=== PATIENT | female | born 1950 ===

== ENCOUNTER 2024-11-10 07:26 | Inpatient (IN) | payer MEDICARE, OTHER, SELFPAY ==
--- NOTE | 2024-10-20 15:10 | PTCARENOTE ---
Patient utilizes iVaps machine @ [facility]. Contacted Maria Esther Mathew in Resp regarding post op management. Maria Esther offered to speak with patient regarding post op options and device management. Resp will attempt to speak with patient when she comes in
for preadmission testing on 10/21.
--- NOTE | 2024-10-21 13:21 | CM ---
Cm reviewed medical records. CM left message for patient to discuss discharge planning options.
[2024-10-21 14:00] LABS: Hemoglobin 13.4 g/dL (12.0-16.0); Mean Corp Hgb Conc. 31.2 g/dL (33.0-37.0); Mean Corpuscular Hgb 28.6 pg (27.0-31.0); Mean Corpuscular Volume 91.7 fL (81.0-99.0); Platelet Count 481 10^3/uL (130-400); Red Blood Cell Count 4.69 10^6/uL (4.20-5.40); Red Cell Dist. Width 13.3 % (11.5-14.5); White Blood Cell Count 13.2 10^3/uL (4.8-10.8)
[2024-10-21 14:08] VITALS: BMI 46.2
--- NOTE | 2024-10-21 14:22 | CM ---
CM spoke with patient via phone. Patient stated that she lives with her sister and sister's fiance. She did explain that they also work and are not available during the day for assistance. Patient further stated that she had nieces that can assist,
but they work also. CM explained that SNF would not be funded unless she was an inpatient for three midnights. Patient is unable to private pay for rehab.
Patient would be agreeable to skilled care. CM sent patient a list of private pay aides via email. Patient stated that she will review list. Patient was grateful for the information and will discuss further with her surgical team and family.
CM will remain available as needed.
[2024-10-21 14:32] LABS: Glycohemoglobin (HgbA1c) 7.4 % (4.0-5.6)
[2024-10-21 14:41] LABS: ALT (SGPT) 17 U/L (0-35); AST (SGOT) 18 U/L (14-36); Albumin 4.8 g/dl (3.5-5.0); Alkaline Phosphatase 85 U/L (38-126); Blood Urea Nitrogen 23 mg/dl (7-17); Calcium 9.8 mg/dl (8.4-10.2); Carbon Dioxide 32 mmol/L (22-30); Chloride 93 mmol/L (98-107); Estimated Creatinine Clearance 56 ml/min; Glucose 197 mg/dl (70-99); Potassium 4.2 mmol/L (3.5-5.1); Sodium 137 mmol/L (135-145); Total Bilirubin 1.2 mg/dl (0.2-1.3); Total Protein 7.9 g/dl (6.3-8.2); eGFR 47.21
--- NOTE | 2024-10-26 13:17 | VNURNOTE ---
Chart reviewed. Due to patient's home address, she would be out of [facility] service area. Per chart, she will be admitted morning of surgery and will be assigned a CM after surgery for DC planning. DC dispo TBD.
--- NOTE | 2024-11-04 08:27 | PTCARENOTE ---
Abnormal eGFR 47.21 and A1C 7.4 collected 10/21/24, reported to Samantha at Dr Sandhu's office.
[2024-11-10] VITALS (23 sets, daily range): BP systolic 106–178; BP diastolic 52–96; PULSE 107; BMI 46.2
[2024-11-10] MEDS: TYLENOL 1000 MG PO (08:11)
[2024-11-10] MEDS: NORMOSOL-R/PLASMALYTE-A 1000 IV ×2 (08:34→16:25)
[2024-11-10 08:36] LABS: Glucose - Point of Care 217 mg/dl (70-99)
[2024-11-10] MEDS: NOVOLOG vial 2 UNITS SC ×2 (08:43→11:53)
--- NOTE | 2024-11-10 09:09 | W.DS.TRANS ---
DC Summary - Skid Man
-
Discharge Instructions:
Discharge Diagnosis/Procedures R Reverse TSA 11/10/24
Diet Diabetic, Carb Controlled
Activity No strenuous activity
Driving Restrictions No driving
Instructions:
Stand-Alone Forms: Total Shoulder Replacement D/C
Changes to Home Medications: Yes
Discharge Medications:
DC Medications w/original date entered in [id number]
bupropion HCl 150 mg tablet,12 hr sustained-release (Wellbutrin SR) 150 mg PO DAILY 10/20/24
cholecalciferol (vitamin D3) 50 mcg (2,000 unit) capsule (Vitamin D3) 100 mcg PO DAILY 10/20/24
cilostazol 100 mg tablet 100 mg PO DAILY 10/20/24
dulaglutide 3 mg/0.5 mL subcutaneous pen injector (Trulicity) 3 mg SC JENSEN 10/20/24
fluticasone 100 mcg-salmeterol 50 mcg/dose blistr powdr for inhalation 1 inh inhalation BIDPRN PRN SOB, Wheezes 10/20/24
furosemide 40 mg tablet (Lasix) 40 mg PO DAILY 10/20/24
infliximab 100 mg intravenous solution (Remicade) 1,000 mg IV Q6W 10/20/24
insulin NPH isoph U-100 human 100 unit/mL subcutaneous suspension (Novolin N NPH U-100 Insulin isophane) 15 unit SC DAILY if BS > 100 10/20/24
magnesium 250 mg tablet 500 mg PO DAILY 10/20/24
imabptnzymbe-anvtmkfn-ethrbv tablet 1 tab PO DAILY 10/20/24
pantoprazole 40 mg tablet,delayed release (Protonix) 40 mg PO DAILY 10/20/24
repaglinide 1 mg tablet 3 mg PO DAILY 10/20/24
repaglinide 2 mg tablet 2 mg PO NOON 10/20/24
repaglinide 2 mg tablet 4 mg PO QPM 10/20/24
mupirocin 2 % topical ointment 1 applic intranasal BID #1 tube 10/21/24
Saccharomyces boulardii 250 mg capsule (Florastor) 250 mg PO BID #1 cap 11/10/24
acetaminophen 650 mg tablet,extended release 1,300 mg (2 x 650 mg) PO QID #0 tabs 11/10/24
aspirin 81 mg tablet,delayed release 81 mg PO BID Blood clot prevention/tx #0 tabs 11/10/24
codeine sulfate 15 mg tablet 15 mg PO Q4H PRN moderate-severe pain #30 tabs 11/10/24
docusate sodium 100 mg capsule (Colace) 100 mg PO BID stool softner #1 cap 11/10/24
doxycycline hyclate 100 mg capsule 100 mg PO BID infection prevention #10 caps 11/10/24
gabapentin 300 mg capsule 300 mg PO HS sleep/pain #10 caps 11/10/24
ondansetron 4 mg disintegrating tablet 4 mg PO Q6H PRN n/v #20 tabs 11/10/24
sennosides 8.6 mg tablet (Senokot) 8.6 mg PO BID PRN laxative-constipation #2 tabs 11/10/24
Home Medication Changes
mupirocin 2 % topical ointment 1 applic intranasal BID #1 tube 10/21/24
Saccharomyces boulardii 250 mg capsule (Florastor) 250 mg PO BID #1 cap 11/10/24
acetaminophen 650 mg tablet,extended release 1,300 mg (2 x 650 mg) PO QID #0 tabs 11/10/24
aspirin 81 mg tablet,delayed release 81 mg PO BID Blood clot prevention/tx #0 tabs 11/10/24
codeine sulfate 15 mg tablet 15 mg PO Q4H PRN moderate-severe pain #30 tabs 11/10/24
docusate sodium 100 mg capsule (Colace) 100 mg PO BID stool softner #1 cap 11/10/24
doxycycline hyclate 100 mg capsule 100 mg PO BID infection prevention #10 caps 11/10/24
gabapentin 300 mg capsule 300 mg PO HS sleep/pain #10 caps 11/10/24
ondansetron 4 mg disintegrating tablet 4 mg PO Q6H PRN n/v #20 tabs 11/10/24
sennosides 8.6 mg tablet (Senokot) 8.6 mg PO BID PRN laxative-constipation #2 tabs 11/10/24
Pending Results: No
[2024-11-10 11:18] LABS: Glucose - Point of Care 183 mg/dl (70-99)
[2024-11-10] MEDS: CODEINE 15 MG PO (11:28)
[2024-11-10] MEDS: NOVOLOG FLEXPEN-MODERATE RESISTANCE SC ×2 (12:35→16:39)
[2024-11-10] MEDS: TYLENOL PO (12:40)
[2024-11-10] MEDS: HUMULIN N KWIKPEN 22 UNITS SC (12:46)
[2024-11-10 13:14] LABS: Glucose - Point of Care 239 mg/dl (70-99)
[2024-11-10 13:14] LABS: Glucose - Point of Care 205 mg/dl (70-99)
[2024-11-10] MEDS: PRANDIN PO (14:59)
[2024-11-10 15:06] LABS: Glucose - Point of Care 305 mg/dl (70-99)
[2024-11-10] MEDS: NOVOLOG vial 6 UNITS SC (15:25)
[2024-11-10] MEDS: TYLENOL 650 MG PO ×3 (15:39→23:15)
[2024-11-10] MEDS: PROTONIX 40 MG PO (15:59)
[2024-11-10] MEDS: MAGNESIUM OXIDE 500 MG PO (15:59)
[2024-11-10] MEDS: WELLBUTRIN SR (12 hour sustained release) 150 MG PO (15:59)
[2024-11-10] MEDS: ANCEF 5 IV ×2 (16:49→23:14)
[2024-11-10 17:10] LABS: Glucose - Point of Care 284 mg/dl (70-99)
[2024-11-10 18:07] LABS: Glucose - Point of Care 260 mg/dl (70-99)
[2024-11-10] MEDS: ASPIRIN 325 MG PO (18:23)
[2024-11-10] MEDS: FLORASTOR 250 MG PO (20:00)
[2024-11-10] MEDS: ADVAIR HFA 45/21 MCG INHALER 2 PUFF INH (20:04)
[2024-11-10 20:22] LABS: Glucose - Point of Care 280 mg/dl (70-99)
[2024-11-10] MEDS: NOVOLOG FLEXPEN-MODERATE RESISTANCE 5 UNITS SC (20:23)
[2024-11-10] MEDS: PRANDIN 4 MG PO (20:29)
[2024-11-10] MEDS: BACTROBAN 2% OINTMENT 1 APPLIC NASAL (20:34)
[2024-11-10] MEDS: NEURONTIN 300 MG PO (22:41)
[2024-11-11] MEDS: TYLENOL 650 MG PO ×4 (03:51→16:55)
[2024-11-11 07:20] VITALS: BP 151/64
[2024-11-11 07:23] LABS: Glucose - Point of Care 226 mg/dl (70-99)
[2024-11-11] MEDS: ADVAIR HFA 45/21 MCG INHALER 2 PUFF INH (07:29)
[2024-11-11] MEDS: FLORASTOR 250 MG PO (08:49)
[2024-11-11] MEDS: MAGNESIUM OXIDE 500 MG PO (08:49)
[2024-11-11] MEDS: PRANDIN 3 MG PO ×2 (08:49→11:33)
[2024-11-11] MEDS: NOVOLOG FLEXPEN-MODERATE RESISTANCE 3 UNITS SC ×2 (08:49→17:55)
[2024-11-11] MEDS: WELLBUTRIN SR (12 hour sustained release) 150 MG PO (08:50)
[2024-11-11] MEDS: BACTROBAN 2% OINTMENT 1 APPLIC NASAL (08:50)
[2024-11-11] MEDS: ASPIRIN 325 MG PO (08:50)
[2024-11-11] MEDS: LASIX 20 MG PO (08:50)
[2024-11-11] MEDS: PROTONIX 40 MG PO (08:50)
[2024-11-11] MEDS: HUMULIN N KWIKPEN 22 UNITS SC (08:51)
--- NOTE | 2024-11-11 09:08 | W.PN.ORTHO ---
Today's Communication / Plan
-
d/c
Assessment
.
Distal Motor Intact: Yes
Dressing:
Clean, dry and intact.
Assessment:
NIDDM-hyperglycemic despite addition of insulins-strict carb control at home-Doxy abx ppx
PAD-resume antiplatelet POD 2
Hypoxemia chronic -secondary to obesity, deconditioning, anesthesia/opioid/JU, COPD/asthma--no SOB-improving with inh-IS-sats stable
Plan
.
Surgery / Date: R Reverse TSA 11/10/24
DVT Prophylaxis: Aspirin
Activity:
Out of bed.
PT/OT
Discharge Plan: Home
Subjective
.
.:
Patient resting comfortably.
Vital Signs and Labs
.
Vital Signs and Labs:
Lab Results
10/21/24 12:35
10/21/24 12:35
Temp Pulse Resp BP Pulse Ox
98.1 F 86 16 151/64 94
11/11/24 07:20 11/11/24 07:34 11/11/24 07:34 11/11/24 07:20 11/11/24 07:34
Non-invasive Hgb result: 16.1
Physical Exam
-
HEENT: No pallor, cyanosis, or jaundice. Throat clear.
NECK: Supple. No JVD.
RESPIRATORY: Lungs clear to auscultation.
CVS: S1, S2 normal. RRR.� No murmur, rub or gallop.
ABDOMEN: Soft, non-tender. No distension. BS+/normal.
EXTREMITIES: strength equal, no calf pain with palpation
MULTIPLE SCLEROSIS NURSE: AOx3. No focal deficits. cat wagon operator grossly intact
[2024-11-11] MEDS: LASIX 20 MG IV (10:00)
[2024-11-11 10:37] VITALS: BP 146/82; PULSE 81; O2SAT 95
[2024-11-11 11:24] VITALS: BP 128/81; PULSE 80
[2024-11-11 11:26] LABS: Glucose - Point of Care 288 mg/dl (70-99)
[2024-11-11] MEDS: CODEINE 15 MG PO (11:32)
--- NOTE | 2024-11-11 11:54 | CM ---
Addendum entered by Dionne Toña 11/11/24 15:51:
Transport at 1900 - pt aware - reports will contact family
Addendum entered by Dionne Toña 11/11/24 15:50:
Accepted by [facility]
Addendum entered by Dionne Ding 11/11/24 13:04:
LM with Liapolo Rai - requesting referral review0
Pt reports she lives in an apt with her sister and sister's fiance - 16 steps to enter home
Independent at baseline, retired, driving. Used single point cane outside of home
DME - single point cane, commode
SNF - [facility] past
HH - [facility] in past
PCP - [facility]
Pharm - [facility]
Reviewed IMM
PT/OT recs - HH. Requesting referral to [facility] [place]
Reporting will need transport home - unable to maneuver steps at this time. Aware may not qualify for ambulance - requesting to be billed for services if not qualified
Plan - Anticipate home with [facility]
f - [phone]
Original Note:
Initial assessment completed
Referral sent to [facility] [place] for HH needs in [facility]
[2024-11-11] MEDS: NOVOLOG FLEXPEN-MODERATE RESISTANCE 5 UNITS SC (12:49)
[2024-11-11 15:30] VITALS: BP 169/94
[2024-11-11] MEDS: PRANDIN 4 MG PO (16:55)
[2024-11-11 17:17] LABS: Glucose - Point of Care 219 mg/dl (70-99)
== END 2024-11-11 18:25 | disposition home health service (06) | DRG 483 ==
LOC: 2 SOUTH 07:26
PROVIDERS: ADMITTING PHYSICIAN Orthopaedic Surgery Hand Surgery; FAMILY PHYSICIAN Internal Medicine
PROC: 0RRJ00Z Replacement of Right Shoulder Joint with Reverse Ball and Socket Synthetic Substitute, Open Approach (ICD-10-PCS; 2024-11-10)
PROC: 5A09357 Assistance with Respiratory Ventilation, Less than 24 Consecutive Hours, Continuous Positive Airway Pressure (ICD-10-PCS; 2024-11-10)
DX: M19.011 Primary osteoarthritis, right shoulder (principal); K50.90 Crohn's disease, unspecified, without complications; A04.72 Enterocolitis due to Clostridium difficile, not specified as recurrent; Z68.42 Body mass index [BMI] 45.0-49.9, adult; M75.101 Unspecified rotator cuff tear or rupture of right shoulder, not specified as traumatic; N18.30 Chronic kidney disease, stage 3 unspecified; E11.22 Type 2 diabetes mellitus with diabetic chronic kidney disease; E11.51 Type 2 diabetes mellitus with diabetic peripheral angiopathy without gangrene; G47.33 Obstructive sleep apnea (adult) (pediatric); K21.9 Gastro-esophageal reflux disease without esophagitis; F32.A Depression, unspecified; D69.6 Thrombocytopenia, unspecified; E66.01 Morbid (severe) obesity due to excess calories; Z87.891 Personal history of nicotine dependence; Z96.653 Presence of artificial knee joint, bilateral; Z98.41 Cataract extraction status, right eye; Z98.42 Cataract extraction status, left eye; E11.65 Type 2 diabetes mellitus with hyperglycemia; J44.89 Other specified chronic obstructive pulmonary disease; R09.02 Hypoxemia
CPT/HCPCS: 36415; 73020; 80053; 82962; 83036; 85027; 86850; 86900; 86901; 87070; 93005; 94640; 94660; 97110; 97116; 97162; 97166; 97535; C1713; C1776

== ENCOUNTER 2025-03-22 15:00 | Inpatient (IN) | payer MEDICARE, OTHER, SELFPAY ==
[2025-03-22] VITALS (32 sets, daily range): BP systolic 97–134; BP diastolic 33–91; PULSE 2–95; BMI 44.5
[2025-03-22] MEDS: NORMOSOL-R/PLASMALYTE-A 1000 IV (07:35)
[2025-03-22 07:38] LABS: Glucose - Point of Care 119 mg/dl (70-99)
[2025-03-22 07:52] LABS: Hematocrit 34.6 % (37.0-47.0); Hemoglobin 10.6 g/dL (12.0-16.0); Mean Corp Hgb Conc. 30.6 g/dL (33.0-37.0); Mean Corpuscular Volume 84.6 fL (81.0-99.0); Platelet Count 453 10^3/uL (130-400); Red Cell Dist. Width 16.3 % (11.5-14.5)
[2025-03-22] MEDS: TYLENOL 1000 MG PO (07:55)
[2025-03-22 08:10] LABS: ALT (SGPT) < 10 U/L (0-35); AST (SGOT) 14 U/L (14-36); Albumin 4.2 g/dl (3.5-5.0); Alkaline Phosphatase 81 U/L (38-126); Blood Urea Nitrogen 31 mg/dl (7-17); Calcium 9.1 mg/dl (8.4-10.2); Carbon Dioxide 35 mmol/L (22-30); Chloride 94 mmol/L (98-107); Estimated Creatinine Clearance 48 ml/min; Glucose 118 mg/dl (70-99); Potassium 4.3 mmol/L (3.5-5.1); Sodium 138 mmol/L (135-145); Total Protein 7.9 g/dl (6.3-8.2); eGFR 38.99
[2025-03-22] MEDS: MOBIC 15 MG PO (08:11)
[2025-03-22 12:40] LABS: Glucose - Point of Care 196 mg/dl (70-99)
--- NOTE | 2025-03-22 12:53 | CON.HOSP ---
Addendum entered and electronically signed by Talita Anderson MD 03/22/25 13:54:
ABG shows hypercarbia/acute respiratory acidosis secondary to anaesthesia/COPD. Patient improving on BIPAP.
Hold all sedating medications and insulin apart from ISS.
Original Note:
Family Physician
-
Family Physician: INTERVIEWE UNKNOWN - PT NOT
Chief Complaint
-
post op consult
History of Present Illness
75-year-old female past medical history of right rotator cuff arthropathy/arthritis of right shoulder status post right reverse total shoulder arthroplasty in November,, osteoarthritis, PACs, diabetes, peripheral arterial disease, childhood heart
murmur, anxiety/depression, Crohn's disease, GERD, COPD, obstructive sleep apnea on CPAP, CKD 3, C. difficile colitis 2018, obesity, remote tobacco use, restless leg syndrome
Patient was admitted in November for right reverse total shoulder arthroplasty. Today she underwent ORIF.
Hospitalist consulted for medical management. Patient was noted to be somnolent, unresponsive after anesthesia. She opens her eyes a little bit to stimulation.
Medical History
Past Medical History
Past Medical History: Reports Other (right rotator cuff arthropathy/arthritis of right shoulder status post right reverse total shoulder arthroplasty in November,, osteoarthritis, PACs, diabetes, peripheral arterial disease, childhood heart murmur,
anxiety/depression, Crohn's disease, GERD, COPD, obstructive sleep apnea on CPAP, CKD 3, C.)
Past Surgical History: Reports Other ( Cholecystectomy, bilateral knee replacement, cataracts, right shoulder R TSA-AW R,)
Social History
Unable to obtain full social history at this time due to: Patient Non-verbal
Allergies / Home Medications
Allergies reflects when Allergies were last updated in Book[facility]Table.
Home Medications with original date entered in Book&Table
Allergy/Medication List:
Allergies
Allergy/AdvReac Type Severity Reaction Status Date / Time
celecoxib (From Celebrex) Allergy Palpitation Verified 03/22/25 07:42
s
infliximab-dyyb (From Allergy Uncontrollable Verified 03/22/25 07:42
Inflectra) Diarrhea
rofecoxib (From Vioxx) Allergy Palpitation Verified 03/22/25 07:42
NSAIDS (Non-Steroidal AdvReac Chronic Verified 03/22/25 07:42
Anti-Inflamma Kidney
Disease,
Crohns
oxycodone AdvReac 'made me Verified 03/22/25 07:42
crazy'
Home Medications
bupropion HCl 150 mg tablet,12 hr sustained-release (Wellbutrin SR) 150 mg PO DAILY Depression 10/20/24
cholecalciferol (vitamin D3) 50 mcg (2,000 unit) capsule (Vitamin D3) 50 mcg PO DAILY Supplement 10/20/24
insulin NPH isoph U-100 human 100 unit/mL subcutaneous suspension (Novolin N NPH U-100 Insulin isophane) 15 unit SC DAILY if BS > 100 10/20/24
pantoprazole 40 mg tablet,delayed release (Protonix) 40 mg PO DAILY Gastrointestinal Issue 10/20/24
repaglinide 2 mg tablet 3 mg PO DAILY Diabetes 10/20/24
repaglinide 2 mg tablet 4 mg PO BID@1200,1800 Diabetes 10/20/24
acetaminophen 300 mg-codeine 30 mg tablet 1 tab PO Q4H PRN Severe Pain 03/21/25
acetaminophen 500 mg tablet 1,000 mg PO Q6H PRN pain 03/21/25
aspirin 81 mg tablet 81 mg PO DAILY 03/21/25
bumetanide 1 mg tablet 1 mg PO BID 03/21/25
cilostazol 100 mg tablet 100 mg PO DAILY 03/21/25
cyclobenzaprine 5 mg tablet 5 mg PO Q8HPRN PRN Spasms 03/21/25
dulaglutide 4.5 mg/0.5 mL subcutaneous pen injector (Trulicity) 4.5 mg SC QWEEK 03/21/25
fluticasone 250 mcg-salmeterol 50 mcg/dose blistr powdr for inhalation 1 inh inhalation Q12H 03/21/25
fluticasone propionate 50 mcg/actuation nasal spray,suspension (Flonase Allergy Relief) 2 spray intranasal DAILY PRN Rhinitis, Congestion 03/21/25
gabapentin 600 mg tablet 600 mg PO HS 03/21/25
infliximab 100 mg intravenous solution (Remicade) 1,000 mg IV Q6W 03/21/25
lidocaine HCl 4 % topical patch 1 patch topical Q12H Pain 03/21/25
magnesium oxide 400 mg PO DAILY 03/21/25
potassium chloride 20 mEq tablet,extended release 40 meq PO DAILY 03/21/25
ropinirole 0.5 mg tablet 0.5 mg PO HS 03/21/25
ropinirole 0.5 mg tablet 0.5 mg PO PRN PRN RLS if first dose ineffective 03/21/25
Review of Systems
-
Unable to obtain full review of systems at this time due to: Patient Non-verbal
History Source: Coordinated Provider
A 12 point Review of Systems was completed except as noted: No
Physical Exam
Vital Signs
Vital Signs
Temp Pulse Resp BP Pulse Ox
98.2 F 89 18 131/72 97
03/22/25 07:30 03/22/25 07:30 03/22/25 07:30 03/22/25 07:30 03/22/25 07:30
Physical Exam
General: Well Developed, Well Nourished and No Apparent Distress
HEENT: Normocephalic, Moist Mucous Membranes and Atraumatic
Respiratory: Clear
Cardiac: S1/S2 and Regular Rhythm; Negative Murmur or Rub
GI: Soft, Non Tender, Non Distended and Normal Bowel Sounds
Rectal: Deferred by Provider
Musculoskeletal: No Clubbing, No Cyanosis and No Edema
Skin: Negative Rash
Neuro: Nonfocal/Grossly Intact
Laboratory Results
-
Total Bilirubin 0.8 mg/dl (0.2-1.3) 03/22/25 07:29
AST 14 U/L (14-36) 03/22/25 07:29
ALT < 10 U/L (0-35) 03/22/25 07:29
Alkaline Phosphatase 81 U/L (38-126) 03/22/25 07:29
Data Reviewed
-
Lab Data: Labs Reviewed
Old Records: Reviewed
Impression / Plan
-
IMPRESSION:
PLAN:
# Right periprosthetic humerus fracture status post ORIF
# Right rotator cuff arthropathy/arthritis status post right reverse total shoulder arthroplasty in November 2024
-400 cc blood loss, received 1200 cc IV fluids intraoperatively
-Uribe catheter placed
- Received 1 unit of blood in operating room
# Altered mental status/hypoxemia after anesthesia concerning for hypercarbia in setting of COPD
-Patient slightly arousable, likely anesthesia side effect setting of COPD and she just got out of operating room, rule out hypercarbia
-lung exam without wheezing
- Blood sugar 196
- Check ABG and start BIPAP
- Check CBC and BMP
Worsening anemia
- Hemoglobin 10.6 today from 13.4 in October
-continue to follow
Peripheral arterial disease
- Continue cilostazol
Childhood heart murmur
Osteoarthritis
- Continue cyclobenzaprine, gabapentin
History of PACs
Type 2 diabetes
- On Trulicity
-Hold repaglinide
-Hold Novolin
- Insulin sliding scale for now
Anxiety/depression
- Continue bupropion
Crohn's disease
- On Remicade
Restless leg syndrome
- Continue ropinirole
GERD
COPD
Obstructive sleep apnea
-On CPAP
CKD 3
- Renal function at base
History of C. difficile colitis 2017
Obesity
Former tobacco use
Full code
DVT prophylaxis�aspirin, can start heparin tomorrow
Diabetic diet
[2025-03-22 13:13] LABS: B.E. 2.6 mmol/L; HCO3 33.2 mmol/L (21-28); O2 Saturation % 97.8 % (94-98); PO2 89 mmHg (83-108)
[2025-03-22 13:20] LABS: PCO2 89 mmHg (32-35)
[2025-03-22 13:24] LABS: Hematocrit 35.5 % (37.0-47.0); Hemoglobin 10.8 g/dL (12.0-16.0); Mean Corp Hgb Conc. 30.4 g/dL (33.0-37.0); Mean Corpuscular Volume 86.4 fL (81.0-99.0); Platelet Count 452 10^3/uL (130-400); Red Cell Dist. Width 16.2 % (11.5-14.5)
[2025-03-22] MEDS: SUBLIMAZE 25 MCG IV (13:45)
[2025-03-22 13:59] LABS: ALT (SGPT) 12 U/L (0-35); AST (SGOT) 27 U/L (14-36); Albumin 3.9 g/dl (3.5-5.0); Alkaline Phosphatase 82 U/L (38-126); Blood Urea Nitrogen 31 mg/dl (7-17); Calcium 8.7 mg/dl (8.4-10.2); Carbon Dioxide 31 mmol/L (22-30); Chloride 97 mmol/L (98-107); Estimated Creatinine Clearance 56 ml/min; Glucose 234 mg/dl (70-99); Potassium 4.9 mmol/L (3.5-5.1); Sodium 135 mmol/L (135-145); Total Protein 7.3 g/dl (6.3-8.2); eGFR 46.91
[2025-03-22 16:56] LABS: Glucose - Point of Care 275 mg/dl (70-99)
[2025-03-22] MEDS: LOW STRENGTH ASPIRIN 81 MG PO (17:21)
[2025-03-22] MEDS: NOVOLOG FLEXPEN-LOW RESISTANCE 3 UNITS SC (17:29)
[2025-03-22] MEDS: BUMEX 1 MG PO (19:54)
[2025-03-22] MEDS: COLACE 100 MG PO (19:57)
[2025-03-22] MEDS: ANCEF 10 IV (20:29)
[2025-03-22 21:17] LABS: Glucose - Point of Care 271 mg/dl (70-99)
[2025-03-23] VITALS (27 sets, daily range): BP systolic 93–136; BP diastolic 57–108; PULSE 2–79; O2SAT 94–95; BMI 45.2
[2025-03-23] MEDS: TYLENOL 1000 MG PO ×4 (00:31→21:30)
[2025-03-23] MEDS: ANCEF 10 IV (03:39)
[2025-03-23 04:07] LABS: Hematocrit 28.3 % (37.0-47.0); Hemoglobin 8.8 g/dL (12.0-16.0)
[2025-03-23 04:32] LABS: Blood Urea Nitrogen 38 mg/dl (7-17); Estimated Creatinine Clearance 51 ml/min; Glucose 142 mg/dl (70-99); Sodium 133 mmol/L (135-145); eGFR 42.62
[2025-03-23 04:33] LABS: Calcium 8.5 mg/dl (8.4-10.2); Carbon Dioxide 30 mmol/L (22-30); Chloride 97 mmol/L (98-107); Potassium 4.8 mmol/L (3.5-5.1)
[2025-03-23] MEDS: NOVOLOG FLEXPEN-LOW RESISTANCE SC ×2 (07:47→11:58)
[2025-03-23 07:48] LABS: Glucose - Point of Care 144 mg/dl (70-99)
[2025-03-23] MEDS: MAG-TAB SR 84 MG PO (08:08)
[2025-03-23] MEDS: BUMEX 1 MG PO ×2 (08:08→19:38)
[2025-03-23] MEDS: PROTONIX 40 MG PO (08:09)
[2025-03-23] MEDS: KCL 40 MEQ PO (08:09)
[2025-03-23] MEDS: WELLBUTRIN SR (12 hour sustained release) 150 MG PO (08:09)
[2025-03-23] MEDS: VITAMIN D3 (cholecalciferol) 50 MCG PO (08:11)
[2025-03-23] MEDS: VIBRAMYCIN 100 MG PO ×2 (08:11→19:37)
[2025-03-23] MEDS: COLACE 100 MG PO ×2 (08:11→19:37)
[2025-03-23] MEDS: LOW STRENGTH ASPIRIN 81 MG PO ×2 (08:11→19:37)
[2025-03-23] MEDS: ULTRAM 50 MG PO ×2 (09:02→23:50)
--- NOTE | 2025-03-23 10:10 | W.PN.ORTHO ---
Today's Communication / Plan
-
75-year-old female postoperative 1 right periprosthetic of reverse total shoulder arthroplasty humerus diaphyseal ORIF with Dr. Sandhu.
- Patient appears improved today compared to previous report. H&H within good range
- Internal medicine following/consulted; appreciate assistance and recommendations and associated treatment plan.
- Nonweightbearing to right upper extremity. Sling when ambulatory. Okay for gentle range of motion of elbow wrist and hand.
- Case management for discharge planning
Assessment
.
Distal Motor Intact: Yes
Dressing:
Clean, dry and intact.
Plan
.
Surgery / Date: 03/22/2025 R humerus ORIF w/ Dr. Sandhu
Activity:
Out of bed.
PT/OT
Subjective
.
.:
Patient resting comfortably. Improved from yesterday
Vital Signs and Labs
.
Vital Signs and Labs:
Lab Results
03/23/25 03:51
03/23/25 03:51
Temp Pulse Resp BP Pulse Ox
98.1 F 78 19 93/75 87
03/23/25 03:01 03/23/25 08:30 03/23/25 08:30 03/23/25 08:30 03/23/25 08:30
[2025-03-23 10:37] LABS: B.E. 9.0 mmol/L; HCO3 34.5 mmol/L (21-28); O2 Saturation % 96.6 % (94-98); PCO2 52 mmHg (32-35); PO2 65 mmHg (83-108)
--- NOTE | 2025-03-23 11:05 | CM ---
Addendum entered by Geeta Casanova RN 03/23/25 12:01:
CM updated patient's sister Smiley with discharge plan.
Original Note:
CM reviewed medical records. Plan for SNF as per PT. Patient stated that she had a good experience at [facility] and would like to return. Patient currently lives in [facility] at [facility] and plans to return there after SNF.
Patient is agreeable to additional referrals. CM sent referrals via [facility] to [facility], [facility], [facility], and [facility].
CM will await acceptance feedback.
[2025-03-23 11:06] LABS: Glycohemoglobin (HgbA1c) 6.8 % (4.0-5.6)
--- NOTE | 2025-03-23 11:40 | PTCARENOTE ---
Pt's assessment as documented. Aox3, very pleasant. NSR on tele monitor. R arm surgical dressing in place with small shadow of old drainage; arm in sling. Neurovascular checks as documented. OOB to chair with PT. Medicated for pain PRN, see MAR.
Uribe draining yellow urine. Chair and bed alarm in place for safety. Ringing appropriately, call concepcion within reach.
[2025-03-23 12:08] LABS: Glucose - Point of Care 115 mg/dl (70-99)
--- NOTE | 2025-03-23 13:14 | W.PN.HOSP.TC ---
Today's Communication/Plan
-
Monitor vital signs see plan
Pulmonary evaluation if needed AVAPS
Continue with BiPAP nightly and as needed if napping
Check chest x-ray
Wean oxygen as tolerated
Needs SNF
DVT prophylaxis per primary
Assessment / Plan
Assessment / Plan
General: Well Developed, Well Nourished and No Apparent Distress
HEENT: Normocephalic, Moist Mucous Membranes and Atraumatic
Respiratory: Clear
Cardiac: S1/S2 and Regular Rhythm; Negative Murmur or Rub
GI: Soft, Non Tender, Non Distended and Normal Bowel Sounds
Musculoskeletal: No Edema
Neuro: Nonfocal/Grossly Intact
Right periprosthetic humerus fracture status post ORIF
# Right rotator cuff arthropathy/arthritis status post right reverse total shoulder arthroplasty in November 2024
-400 cc blood loss, received 1200 cc IV fluids intraoperatively
-Uribe catheter placed; remove per primary team
- Received 1 unit of blood in operating room
# Altered mental status/hypoxemia after anesthesia concerning for hypercarbia in setting of COPD and morbid obesity
Acute hypercarbic hypoxic respiratory failure
ABG noted on 03/22 with severe respiratory acidosis secondary to suspected acute on chronic hypercarbia
Repeat ABG 03/23 improving with pH 7.4. Suspect some hypercarbia is chronic
She uses AVAPS at home. Currently was placed on BiPAP overnight. This morning on nasal cannula. Will likely need AVAPS or BiPAP at bedtime and while napping
Pulmonary evaluation
Check chest x-ray
Restart Advair. Patient is not compliant at home and only takes his as needed
Worsening anemia
Likely acute on chronic
-continue to follow, check iron panel, B12, folate
Peripheral arterial disease
- Continue cilostazol
Childhood heart murmur
Osteoarthritis
- Continue cyclobenzaprine, gabapentin
History of PACs
Type 2 diabetes
- On Trulicity
-Hold repaglinide
-Hold Novolin
- Insulin sliding scale for now
A1c 6.8
Anxiety/depression
- Continue bupropion
Crohn's disease
- On Remicade
Restless leg syndrome
- Continue ropinirole
GERD
COPD
Obstructive sleep apnea
-On avap at home
CKD 3
- Renal function at base
History of C. difficile colitis 2017
Obesity
Former tobacco use
Full code
DVT prophylaxis�aspirin per ortho
I spent a total of 52 minutes with the patient or on the floor. More than 50% of this time involved counseling and coordination of care.
Anticipated Discharge: 24 - 48 hours
Subjective/Interval History
-
Date of Service: March 23, 2025
Denies nausea
Objective Data
-
Labs:
Laboratory Results
03/23/25 03/23/25
03:51 10:26
Hgb 8.8 L
Hct 28.3 L
HCO3 34.5 H
Sodium 133 L
Potassium 4.8
Chloride 97 L
Carbon Dioxide 30
BUN 38 H
Creatinine 1.3 H
Glucose 142 H
Calcium 8.5
Vital Signs:
Vital Signs
Temp Pulse Resp BP Pulse Ox
98.3 F 82 22 111/62 91
03/23/25 11:17 03/23/25 10:30 03/23/25 10:30 03/23/25 10:06 03/23/25 10:30
I&O
03/22/25 03/23/25 03/24/25
06:59 06:59 06:59
Intake Total 120 / 120
Output Total 1570 / 1570
Balance -1450 / -1450
--- NOTE | 2025-03-23 13:16 | CM ---
Addendum entered by Geeta Casanova RN 03/23/25 13:53:
CM spoke with Ashlie at [facility]. She is able to accept patient for Friday if patient is medically cleared. Cm updated that patient has an AVAPS machine and patient will need to provide.
Original Note:
Patient has been declined by [facility] due to no available beds. Patient is agreeable to [facility]. CM left message for admission coordinator regarding patient's acceptance of bed offer. CM will await call back,
[2025-03-23 15:21] LABS: Iron 122 ug/dl (37-170)
[2025-03-23 15:31] LABS: Total Iron Binding Capacity 309 ug/dl (265-497)
[2025-03-23 16:16] LABS: Ferritin 47.7 ng/ml (11.1-264.0)
[2025-03-23 16:48] LABS: Folate 5.9 ng/ml (2.76-20); Vitamin B12 328 pg/ml (239-931)
[2025-03-23 17:09] LABS: Glucose - Point of Care 158 mg/dl (70-99)
[2025-03-23] MEDS: NOVOLOG FLEXPEN-LOW RESISTANCE 1 UNITS SC (17:34)
--- NOTE | 2025-03-23 17:38 | CON.PUL ---
Consultation
Consultation Request
Date/Time Consultation Requested: 03/23/2025
Date/Time Consultation Performed: 03/23/2025
Requesting Provider: Dr. Barron
Performing Provider: Dr. Luis Enrique Qureshi
Reason for Consultation: hypoxemic/hypercapnic respiratory failure.
Medical History
-
History of Present Illness:
75-year-old woman with past medical history significant for Crohn's disease, GERD, COPD, obstructive sleep apnea on CPAP therapy, anxiety, depression, type 2 diabetes, status post right shoulder reverse total shoulder arthroplasty in November 2024,
this time admitted to the hospital on 03/22/2025 , records reviewed patient had a mechanical fall resulting on a pair prostatic humerus fracture. Admitted to the hospital for aureus that underwent on 03/22/2025.
Postoperatively, patient was found to be somnolent, unresponsive after anesthesia.
Patient was placed on BiPAP and oxygen therapy.
We were consulted for evaluation.
Past Medical History
Past Medical History: Other (See assessment and plan)
Social History
Tobacco: Other ( Unable to obtain, patient unresponsive. remote smoking history.)
Family History
Family History: Unable to Obtain
Allergies / Home Medications
Allergies
Allergy/AdvReac Type Severity Reaction Status Date / Time
celecoxib (From Celebrex) Allergy Palpitation Verified 03/22/25 07:42
s
infliximab-dyyb (From Allergy Uncontrollable Verified 03/22/25 07:42
Inflectra) Diarrhea
rofecoxib (From Vioxx) Allergy Palpitation Verified 03/22/25 07:42
NSAIDS (Non-Steroidal AdvReac Chronic Verified 03/22/25 07:42
Anti-Inflamma Kidney
Disease,
Crohns
oxycodone AdvReac 'made me Verified 03/22/25 07:42
crazy'
Home Medications
�Medication �Instructions �Recorded �Confirmed �Last Taken �Type
bupropion HCl 150 mg tablet,12 hr 150 mg PO DAILY Depression 10/20/24 03/22/25 03/21/25 10:00 History
sustained-release (Wellbutrin SR)
cholecalciferol (vitamin D3) 50 50 mcg PO DAILY Supplement 10/20/24 03/22/25 03/21/25 10:00 History
mcg (2,000 unit) capsule (Vitamin
D3)
insulin NPH isoph U-100 human 100 15 unit SC DAILY if BS > 100 10/20/24 03/22/25 03/21/25 10:00 History
unit/mL subcutaneous suspension 15 units
(Novolin N NPH U-100 Insulin
isophane)
pantoprazole 40 mg tablet,delayed 40 mg PO DAILY Gastrointestinal 10/20/24 03/22/25 03/21/25 10:00 History
release (Protonix) Issue
repaglinide 2 mg tablet 3 mg PO DAILY Diabetes 10/20/24 03/22/25 03/21/25 10:00 History
3 mg
repaglinide 2 mg tablet 4 mg PO BID@1200,1800 Diabetes 10/20/24 03/22/25 03/21/25 13:30 History
4 mg
acetaminophen 300 mg-codeine 30 mg 1 tab PO Q4H PRN Severe Pain 03/21/25 03/22/25 3 Weeks Ago History
tablet ~03/01/25
acetaminophen 500 mg tablet 1,000 mg PO Q6H PRN pain 03/21/25 03/22/25 03/21/25 22:00 History
aspirin 81 mg tablet 81 mg PO DAILY Blood Clot 03/21/25 03/22/25 3 Days Ago History
Prevention/Tx ~03/19/25
bumetanide 1 mg tablet 1 mg PO BID Fluid 03/21/25 03/22/25 03/21/25 10:00 History
Retention/Swelling
cilostazol 100 mg tablet 100 mg PO DAILY Blood Clot 03/21/25 03/22/25 03/21/25 10:00 History
Prevention/Tx
cyclobenzaprine 5 mg tablet 5 mg PO Q8HPRN PRN Spasms 03/21/25 03/22/25 03/21/25 18:00 History
dulaglutide 4.5 mg/0.5 mL 4.5 mg SC QWEEK Diabetes 03/21/25 03/22/25 03/08/25 History
subcutaneous pen injector
(Trulicity)
fluticasone 250 mcg-salmeterol 50 1 inh inhalation Q12H 03/21/25 03/22/25 03/22/25 05:00 History
mcg/dose blistr powdr for Lung/Breathing Issues
inhalation
fluticasone propionate 50 2 spray intranasal DAILY PRN 03/21/25 03/22/25 03/22/25 05:00 History
mcg/actuation nasal Rhinitis, Congestion
spray,suspension (Flonase Allergy
Relief)
gabapentin 600 mg tablet 600 mg PO HS Neurological Condition 03/21/25 03/22/25 03/20/25 History
infliximab 100 mg intravenous 1,000 mg IV Q6W Crohn's disease 03/21/25 03/22/25 03/01/25 History
solution (Remicade)
lidocaine HCl 4 % topical patch 1 patch topical Q12H Pain 03/21/25 03/22/25 Unknown History
magnesium oxide 400 mg PO DAILY Supplement 03/21/25 03/22/25 03/21/25 10:00 History
potassium chloride 20 mEq 40 meq PO DAILY Supplement 03/21/25 03/22/25 03/21/25 10:00 History
tablet,extended release
ropinirole 0.5 mg tablet 0.5 mg PO HS RLS 03/21/25 03/22/25 03/20/25 22:00 History
ropinirole 0.5 mg tablet 0.5 mg PO PRN PRN RLS if first 03/21/25 03/22/25 03/20/25 History
dose ineffective
Review of Systems
-
Unable to Obtain full review of systems at this time due to: Acuity
Vitals / Labs / Diagnostic Testing
Vital Signs
Temp Pulse Resp BP Pulse Ox
98.1 F 71 15 98/72 94
03/23/25 15:20 03/23/25 16:30 03/23/25 16:30 03/23/25 16:00 03/23/25 16:30
Lab Data
03/23/25 03:51
03/23/25 03:51
Laboratory Results
03/23/25
10:26
pH 7.43
pCO2 52 H
pO2 65 L
HCO3 34.5 H
O2 Delivery Level
Diagnostic Testing:
Physical Exam
-
HEENT: Normocephalic
Cardiovascular: S1/S2
Respiratory: Non-Labored Respirations
GI: Soft and Distended (Obese)
Neurology: Awake, Alert and No Motor Deficits
Skin: Warm
General: Comfortable
Assessment
-
75-year-old woman with past medical history noted, incidentally her records reviewed-does not follow up locally with pulmonary or sleep. Underwent in November right reversal total shoulder arthroplasty. Subsequently sustained a fall with resultant
right tarry prostatic fracture. Admitted this time 03/22/2025 for ORIF. Surgery underwent and patient developed change in mental status with acute on chronic hypercapnic and hypoxemic respiratory failure. We were consulted for evaluation.
Acute on chronic hypoxemic and hypercapnic respiratory failure-likely triggered by anesthesia.
ABG 03/22/2025, 7.18/89
ABG 03/23/2025: 7.43/52/65
Chest x-ray 03-23-2025: Patchy bibasilar airspace disease-suspect hypoventilation. Atelectasis.
Status post: 03/22/2025 right periprosthetic fracture of reverse total shoulder arthroplasty humerus diaphyseal ORIF with Dr. Sandhu
Postoperative blood loss anemia status post 1 unit of packed red blood cells.
Condition presents for admission:
Obstructive sleep apnea-on AVAP therapy-Unknown settings
Chronic kidney disease stage III
? COPD
Fluticasone/salmeterol
Distant history of smoking
Crohn's disease
Immunosuppression on Remicade infusions
Depression/anxiety
GERD
Peripheral arterial disease
Type 2 diabetes
Posterior arthritis
Status post Right reverse total shoulder arthroplasty.11/10/2024.
-
Assessment and plan:
acute hypercapnic respiratory failure with chronic component. Suspect obesity hypoventilation syndrome/Obstructive sleep apnea. COPD does not appear to be severe enough to cause hypercapnia but may be contributing.
Likely triggered by anesthesia/narcotics for pain etc.
Mental status back to baseline on my evaluation.
She is clinically improved.
ABG has corrected.
Likely patient has obstructive sleep apnea and obesity hypoventilation syndrome-has chronic compensatory metabolic alkalosis.
Again, patient does not follow up locally.
While in the hospital on PT use BiPAP therapy settings increased to 16/8 during naps and bedtime, she seems to be tolerating.
Minimize narcotics
Minimize sedation
Patient can bring her own machine to the hospital ( Uses AVAP in outpx), and must continue to use it in rehabilitation after discharge-either BiPAP or her own machine.
-
No evidence for acute exacerbation of COPD.
Chest x-ray has bibasilar atelectasis.
There is no evidence for infection at this point. Doubt aspiration event.
Atelectasis likely due to hypoventilation from sedation in the setting of underlying sleep disorder.
Incentive spirometry encouraged
Increase activity as able
No indication for antibiotics or systemic corticosteroids.
Okay to restart Advair.
-
Wean down FiO2-currently on low rate supplemental oxygen per suspect hypoventilation
Increase activity
Minimize sedation
Incentive spirometry
-
Must continue to follow up with outpatient pan shaker.
-
Will follow while in the hospital.
-
Follows up with Dr. Blakely-primary pan shaker. Advised to make an appointment in the next 2 to 4 weeks after discharge.
-
[2025-03-23] MEDS: VITAMIN B-12 1000 MCG PO (18:19)
[2025-03-23] MEDS: ADVAIR HFA 115/21 MCG INHALER 2 PUFF INH (19:39)
[2025-03-23] MEDS: REQUIP 0.5 MG PO (21:17)
[2025-03-23 21:23] LABS: Glucose - Point of Care 152 mg/dl (70-99)
[2025-03-24] VITALS (11 sets, daily range): BP systolic 102–139; BP diastolic 58–93; PULSE 2; BMI 44.9
--- NOTE | 2025-03-24 00:13 | PTCARENOTE ---
Patient AAOx3, pleasant. NSR on the monitor. Received pt on 2L NC SpO2 94%. R arm in a sling post surgical dressing intact with old drainage. Neurovascular checks as documented. Pt having 6/10 pain unresolved with PRN Tylenol. Administered PRN
Ultram see MAR. RT bedside to place pt on BiPAP. Uribe draining clear yellow urine. Pt rings appropriately, bed alarm on for safety. Call concepcion within reach.
[2025-03-24] MEDS: TYLENOL 1000 MG PO ×3 (03:36→20:49)
[2025-03-24 04:40] LABS: Hematocrit 28.2 % (37.0-47.0); Hemoglobin 8.8 g/dL (12.0-16.0); Mean Corp Hgb Conc. 31.2 g/dL (33.0-37.0); Mean Corpuscular Volume 85.2 fL (81.0-99.0); Nucleated Red Blood Cells % 0 %; Platelet Count 389 10^3/uL (130-400); Red Cell Dist. Width 16.3 % (11.5-14.5)
[2025-03-24 05:00] LABS: ALT (SGPT) 15 U/L (0-35); AST (SGOT) 25 U/L (14-36); Albumin 3.7 g/dl (3.5-5.0); Alkaline Phosphatase 86 U/L (38-126); Blood Urea Nitrogen 37 mg/dl (7-17); Calcium 8.5 mg/dl (8.4-10.2); Carbon Dioxide 35 mmol/L (22-30); Chloride 93 mmol/L (98-107); Estimated Creatinine Clearance 48 ml/min; Glucose 119 mg/dl (70-99); Potassium 3.9 mmol/L (3.5-5.1); Sodium 136 mmol/L (135-145); Total Protein 6.7 g/dl (6.3-8.2); eGFR 38.99
--- NOTE | 2025-03-24 05:28 | W.PN.ORTHO ---
Today's Communication / Plan
-
75-year-old female postoperative 2 right periprosthetic of reverse total shoulder arthroplasty humerus diaphyseal ORIF with Dr. Sandhu.
- Patient appears improved today compared to previous report. H&H within good range.
- Appreciate pulmonary consult and recommendations. No antibiotics or steroids. AVAP to be used at facility. Incentive spirometry recommended. Limit narcotics.
- Internal medicine following/consulted; appreciate assistance and recommendations and associated treatment plan.
- Nonweightbearing to right upper extremity. Sling at all times. Okay for gentle range of motion of elbow wrist and hand.
- Aspirin 81 mg po BID for DVT prophylaxis
- Case management for discharge planning - bed available at [facility] Friday if medically stable.
-F/u in office in 10-14 days for staple removal and repeat x-rays.
Assessment
.
Distal Motor Intact: Yes
Dressing:
Clean, dry and intact.
Assessment:
75-year-old female postoperative 2 right periprosthetic of reverse total shoulder arthroplasty humerus diaphyseal ORIF with Dr. Sandhu.
- Patient appears improved today compared to previous report. H&H within good range.
- Appreciate pulmonary consult and recommendations. No antibiotics or steroids. AVAP to be used at facility. Incentive spirometry recommended. Limit narcotics.
- Internal medicine following/consulted; appreciate assistance and recommendations and associated treatment plan.
- Nonweightbearing to right upper extremity. Sling at all times. Okay for gentle range of motion of elbow wrist and hand.
- Case management for discharge planning - bed available at [facility] Friday if medically stable.
-F/u in office in 10-14 days for staple removal and repeat x-rays.
Plan
.
Surgery / Date: 03/22/2025 R humerus ORIF w/ Dr. Sandhu
DVT Prophylaxis: Aspirin
Activity:
Out of bed.
PT/OT
Subjective
.
.:
Patient resting comfortably, but reports pain overnight. Sling in place. Denies any breathing issues.
Vital Signs and Labs
.
Vital Signs and Labs:
Lab Results
03/24/25 04:07
03/24/25 04:07
Temp Pulse Resp BP Pulse Ox
98.4 F 67 15 124/58 94
03/24/25 02:55 03/24/25 00:00 03/24/25 00:00 03/24/25 00:00 03/24/25 00:00
Physical Exam
-
Right upper extremity: Dressing c/d/i. Some drainage at distal dressing without leakage. Diffuse swelling and ecchymosis. Gentle ROM of elbow/wrist/hand without pain. Shoulder ROM not tested. N/v intact distally.
[2025-03-24 07:41] LABS: Glucose - Point of Care 107 mg/dl (70-99)
[2025-03-24] MEDS: ADVAIR HFA 115/21 MCG INHALER 2 PUFF INH ×2 (07:43→20:14)
[2025-03-24] MEDS: NOVOLOG FLEXPEN-LOW RESISTANCE SC (07:52)
[2025-03-24] MEDS: BUMEX 1 MG PO ×2 (08:29→20:48)
[2025-03-24] MEDS: ULTRAM 50 MG PO ×2 (08:29→23:21)
[2025-03-24] MEDS: PROTONIX 40 MG PO (08:29)
[2025-03-24] MEDS: VIBRAMYCIN 100 MG PO ×2 (08:29→20:48)
[2025-03-24] MEDS: KCL 40 MEQ PO (08:29)
[2025-03-24] MEDS: LOW STRENGTH ASPIRIN 81 MG PO ×2 (08:29→20:48)
[2025-03-24] MEDS: VITAMIN B-12 1000 MCG PO (08:29)
[2025-03-24] MEDS: VITAMIN D3 (cholecalciferol) 50 MCG PO (08:29)
[2025-03-24] MEDS: MAG-TAB SR 84 MG PO (08:29)
[2025-03-24] MEDS: WELLBUTRIN SR (12 hour sustained release) 150 MG PO (08:29)
[2025-03-24] MEDS: COLACE 100 MG PO (08:29)
--- NOTE | 2025-03-24 09:19 | W.PN.PUL3 ---
Today's Communication / Plan
-
BIPAP initiated but patient has difficulty with pressures and FFM--repeat ABG improved
Will request records on AVAPs settings to see if BIPAP can be adjusted to similar, otherwise recommend she bring her home device in
BIPAP can only be continued for so long as she has history of central apneas
CM following for facility referrals to accommodate her device
D/c panning once that is arranged
She can transfer out of IMU
Assessment
-
75-year-old woman with past medical history noted, incidentally her records reviewed-does not follow up locally with pulmonary or sleep. Underwent in November right reversal total shoulder arthroplasty. Subsequently sustained a fall with resultant
right tarry prostatic fracture. Admitted this time 03/22/2025 for ORIF. Surgery underwent and patient developed change in mental status with acute on chronic hypercapnic and hypoxemic respiratory failure. We were consulted for evaluation.
Acute on chronic hypoxemic and hypercapnic respiratory failure-likely triggered by anesthesia.
ABG 03/22/2025, 7.18//89
ABG 03/23/2025: 7.43/52/65
Chest x-ray 03-23-2025: Patchy bibasilar airspace disease-suspect hypoventilation. Atelectasis.
Status post: 03/22/2025 right periprosthetic fracture of reverse total shoulder arthroplasty humerus diaphyseal ORIF with Dr. Sandhu
Postoperative blood loss anemia status post 1 unit of packed red blood cells.
Condition presents for admission:
Obstructive sleep apnea/central apnea-on AVAP therapy-Unknown settings
Chronic kidney disease stage III
? COPD
Fluticasone/salmeterol
Distant history of smoking
Crohn's disease
Immunosuppression on Remicade infusions
Depression/anxiety
GERD
Peripheral arterial disease
Type 2 diabetes
Posterior arthritis
Status post Right reverse total shoulder arthroplasty.11/10/2024.
-
Plan:
Acute hypercapnic respiratory failure with chronic component s/p BIPAP
Suspect obesity hypoventilation syndrome/Obstructive sleep apnea.
COPD does not appear to be severe enough to cause hypercapnia but may be contributing.
Likely triggered by anesthesia/narcotics for pain etc.
Mental status back to baseline on my evaluation.
She is clinically improved--ABG has corrected.
Minimize narcotics
Minimize sedation
Likely patient has obstructive sleep apnea and obesity hypoventilation syndrome-has chronic compensatory metabolic alkalosis.
She notes she has central apneas requiring AVAPs
Again, patient does not follow up locally.
While in the hospital on PT use BiPAP therapy settings increased to 16/8 during naps and bedtime, she feels pressure too high
Will obtain records from pulmonary office for AVAPs settings
Patient can bring her own machine to the hospital ( Uses AVAP in outpx), and must continue to use it in rehabilitation after discharge-either BiPAP or her own machine.
No evidence for acute exacerbation of COPD.
Chest x-ray has bibasilar atelectasis.
There is no evidence for infection at this point. Doubt aspiration event.
Atelectasis likely due to hypoventilation from sedation in the setting of underlying sleep disorder.
Incentive spirometry encouraged
Increase activity as able
No indication for antibiotics or systemic corticosteroids.
Okay to restart Advair.
-
Wean down FiO2-currently on low rate supplemental oxygen per suspect hypoventilation
Increase activity
Minimize sedation
Incentive spirometry
-
Must continue to follow up with outpatient copy lathe tender.
Will follow while in the hospital.
Follows up with Dr. Blakely-primary copy lathe tender. Advised to make an appointment in the next 2 to 4 weeks after discharge.
-
biofuels technology manager following for evaluation of facility capabilities of handling her AVAPS device
Diagnostic Data
Reports and relevant images were personally reviewed.
Total time spent on this consultation/encounter __51__ minutes which includes review of history, physical exam, medications, laboratory data, personal review of imaging, extensive review of outpatient records, discussion with care team and
respiratory therapy.
Subjective Data
-
Date of Service:
Date of Service: March 24, 2025
Chief Complaint: Pulmonary Follow Up
Subjective:
Doing well today, no new complaints
Sitting in chair
In a sling
Objective Data
Data Reviewed
Vital Signs / I&O / Oxygen:
Vital Signs
Temp Pulse Resp BP Pulse Ox
97.6 F 73 16 126/69 94
03/24/25 07:00 03/24/25 07:47 03/24/25 07:47 03/24/25 06:00 03/24/25 08:43
Intake and Output
03/23/25 03/24/25 03/25/25
06:59 06:59 06:59
Intake Total 120 / 120 240 / 240
Output Total 1570 / 1570 3000 / 3000 750 / 750
Balance -1450 / -1450 -2760 / -2760 -750 / -750
SaO2 94
Nasal Cannula flow liters per 3
minute
Physical Exam
General: Comfortable and Other (NAD)
HEENT: Normocephalic, Anicteric and Moist Mucous Membranes
Cardiovascular: S1-S2 and Regular Rhythm
Respiratory: Clear and Non-Labored Respirations
GI: Soft, Non Distended and Non Tender
Neurology: Awake, Alert and No Motor Deficits
Skin: Warm, Dry and Good Color
Labs/Micro/Reports
Lab Data
03/24/25 04:07
03/24/25 04:07
Laboratory Results
03/23/25
10:26
pH 7.43
pCO2 52 H
pO2 65 L
HCO3 34.5 H
O2 Delivery Level
Microbiology
03/22/25 17:25 Nose MRSA Screen - Final
Staph aureus MRSA
--- NOTE | 2025-03-24 10:11 | PN.CDI ---
CDI
- -
CDI:
Physician Documentation Request
Admit Date: 03/22/25 15:00
Dear Doctor Anderson,
Please review the following and provide your response in the progress notes.
Clinical Indicators:
- 03/22 PN 'Altered mental status/hypoxemia after anesthesia concerning for hypercarbia in setting of COPD'
- 03/23 PN 'Altered mental status/hypoxemia after anesthesia concerning for hypercarbia in setting of COPD and morbid obesity'
- 'Acute hypercarbic hypoxic respiratory failure'
- Blood gas pH 7.18, pCO2 89, HCO3 33.2
Please clarify in the Progress Notes and Discharge Summary which, if any of the following, is the most likely etiology of the altered mental status.
Toxic metabolic encephalopathy
Acute Delirium - indicate known or suspected etiology such as postoperative, due to opioids or other drugs etc. Can also indicate unknown or mixed etiologies.
Acute or subacute confusional state due to (specify known or suspected etiology)
Other (please specify)
Use of terms such as suspected, likely, concern for, or probable (associated with a specific diagnosis that is being evaluated, monitored, or treated as if it exists) are acceptable and can be coded in the inpatient setting, when documented at the
time of discharge.
Thank you,
Mango Mitchell RN
CDI Specialist
Please use your independent medical judgment in providing your response.
--- NOTE | 2025-03-24 10:33 | CM ---
Addendum entered by Geeta Casanova RN 03/24/25 12:45:
CM spoke with Amita from [facility]. She stated they are able to accomodate patient AVAPS. Amita is attempting to secure a bed at [facility] or [facility]. CM sent referral via [facility].
Addendum entered by Geeta Casanova RN 03/24/25 12:12:
[facility] is unable to accommodate patient's AVAPS. CORIE spoke with Amita from [facility] to verify if they can accept patient with AVAPS.
Original Note:
CORIE spoke with patient who stated that [facility] will have to provide her AVAPS at the SNF. CM spoke with [facility] who stated that they can provide patient with her AVAPS if facility is comfortable and they are willing to rent it from
[facility]. CORIE spoke with Jazmine from [facility] who requested that CM check if patient will be able to tolerate Bipap. CM requested feedback from Pulmonary to discuss. CM will await Pulmonary's opinion.
[2025-03-24 12:04] LABS: Glucose - Point of Care 175 mg/dl (70-99)
--- NOTE | 2025-03-24 12:46 | PTCARENOTE ---
Pt's assessment as documented. Aox3, very pleasant. NSR on tele monitor. R arm surgical dressing in place with small shadow of old drainage; arm in sling. Neurovascular checks as documented. OOB to chair with. Medicated for pain PRN, see MAR. Pt
voiding and having large bowel movements on BSC. Chair and bed alarm in place for safety. Ringing appropriately, call concepicon within reach.
[2025-03-24] MEDS: ZOFRAN 4 MG IV (12:53)
[2025-03-24] MEDS: NOVOLOG FLEXPEN-LOW RESISTANCE 1 UNITS SC ×2 (12:53→18:42)
--- NOTE | 2025-03-24 13:27 | W.PN.HOSP.TC ---
Today's Communication/Plan
-
Monitor vital signs
see plan
Wean oxygen as tolerated
On BiPAP at night
Pulmonary following
Hopeful discharge to rehab tomorrow
Assessment / Plan
Assessment / Plan
General: Well Developed, Well Nourished and No Apparent Distress
HEENT: Normocephalic, Moist Mucous Membranes and Atraumatic
Respiratory: Clear
Cardiac: S1/S2 and Regular Rhythm; Negative Murmur or Rub
GI: Soft, Non Tender, Non Distended and Normal Bowel Sounds
Musculoskeletal: No Edema
Neuro: Nonfocal/Grossly Intact
Right periprosthetic humerus fracture status post ORIF
# Right rotator cuff arthropathy/arthritis status post right reverse total shoulder arthroplasty in November 2024
-400 cc blood loss, received 1200 cc IV fluids intraoperatively
-Uribe catheter placed; remove per primary team
- Received 1 unit of blood in operating room
# Altered mental status/hypoxemia after anesthesia concerning for hypercarbia in setting of COPD and morbid obesity
Acute hypercarbic hypoxic respiratory failure
ABG noted on 03/22 with severe respiratory acidosis secondary to suspected acute on chronic hypercarbia
Repeat ABG 03/23 improving with pH 7.4. Suspect some hypercarbia is chronic
She uses AVAPS at home. Currently was placed on BiPAP overnight. This morning on nasal cannula. Pulmonary following. computer project manager for disposition. Patient likely has to bring her AVAPS
Chest x-ray 03/23 with atelectasis. Continue with I-S
Restarted Advair. Patient is not compliant at home and only takes his as needed
Toxic metabolic encephalopathy on admission likely secondary to acute hypercarbic hypoxic respiratory failure
Continue to monitor
improved
Worsening anemia
Likely acute on chronic
Low vitamin B12, replete
Peripheral arterial disease
- Continue cilostazol
Childhood heart murmur
Osteoarthritis
- Continue cyclobenzaprine, gabapentin
History of PACs
Type 2 diabetes
- On Trulicity
- Restart repaglinide
-Hold Novolin
- Insulin sliding scale for now
A1c 6.8
Anxiety/depression
- Continue bupropion
Crohn's disease
- On Remicade
Restless leg syndrome
- Continue ropinirole
GERD
COPD
Obstructive sleep apnea
-On avap at home
CKD 3
- Renal function at base
History of C. difficile colitis 2017
Obesity
Former tobacco use
Full code
DVT prophylaxis�aspirin per ortho
Anticipated Discharge: Within 24 hours
Subjective/Interval History
-
Date of Service: March 24, 2025
denies pain
Objective Data
-
Labs:
Laboratory Results
03/24/25
04:07
WBC 9.5
Hgb 8.8 L
Hct 28.2 L
Plt Count 389
Sodium 136
Potassium 3.9
Chloride 93 L
Carbon Dioxide 35 H
BUN 37 H
Creatinine 1.4 H
Glucose 119 H
Calcium 8.5
Total Bilirubin 0.7
AST 25
ALT 15
Alkaline Phosphatase 86
Vital Signs:
Vital Signs
Temp Pulse Resp BP Pulse Ox
97.7 F 82 15 106/58 91
03/24/25 11:13 03/24/25 12:04 03/24/25 12:04 03/24/25 12:04 03/24/25 10:00
I&O
03/23/25 03/24/25 03/25/25
06:59 06:59 06:59
Intake Total 120 / 120 240 / 240
Output Total 1570 / 1570 3000 / 3000 750 / 750
Balance -1450 / -1450 -2760 / -2760 -750 / -750
--- NOTE | 2025-03-24 14:10 | CM ---
Patient is agreeable to [facility]. [facility] is able to accept the AVAPS. CM called [facility] and requested AVAPS settings. CM sent settings via [facility].
PLAN: SNF< [facility].
[2025-03-24 18:29] LABS: Glucose - Point of Care 167 mg/dl (70-99)
[2025-03-24] MEDS: PRANDIN 4 MG PO (18:42)
[2025-03-24] MEDS: REQUIP 0.5 MG PO (20:49)
[2025-03-24] MEDS: COLACE PO ×2 (20:49→20:50)
[2025-03-24 21:47] LABS: Glucose - Point of Care 211 mg/dl (70-99)
--- NOTE | 2025-03-24 22:08 | PTCARENOTE ---
Patient's assessment and care as documented. AAOx3, pleasant, in good spirits regarding progress. NSR on the monitor. R arm remains in a sling. Surgical dressing intact with scant old drainage. Neurovascular checks as documented. Pt OOB to BSC with
standby assistance. Pt c/o mild discomfort behind her neck most likely due to sling. Pt medicated for pain PRN, see OCT. Pt repositioned. Pt weaned to 2L NC SpO2 95%. Pt to wear BiPAP HS. Bed alarm on. Call concepcion within reach.
[2025-03-25] VITALS (8 sets, daily range): BP systolic 115–139; BP diastolic 63–109; BMI 44.5
[2025-03-25 03:49] LABS: Hematocrit 29.6 % (37.0-47.0); Hemoglobin 9.1 g/dL (12.0-16.0); Mean Corp Hgb Conc. 30.7 g/dL (33.0-37.0); Mean Corpuscular Volume 86.0 fL (81.0-99.0); Nucleated Red Blood Cells % 0 %; Platelet Count 395 10^3/uL (130-400); Red Cell Dist. Width 16.3 % (11.5-14.5)
[2025-03-25 04:11] LABS: ALT (SGPT) 10 U/L (0-35); AST (SGOT) 17 U/L (14-36); Albumin 3.7 g/dl (3.5-5.0); Alkaline Phosphatase 80 U/L (38-126); Blood Urea Nitrogen 38 mg/dl (7-17); Calcium 8.9 mg/dl (8.4-10.2); Carbon Dioxide 38 mmol/L (22-30); Chloride 93 mmol/L (98-107); Estimated Creatinine Clearance 56 ml/min; Glucose 122 mg/dl (70-99); Potassium 3.9 mmol/L (3.5-5.1); Sodium 135 mmol/L (135-145); Total Protein 6.9 g/dl (6.3-8.2); eGFR 46.91
[2025-03-25] MEDS: ADVAIR HFA 115/21 MCG INHALER 2 PUFF INH (07:31)
[2025-03-25 07:36] LABS: Glucose - Point of Care 108 mg/dl (70-99)
--- NOTE | 2025-03-25 07:57 | PTCARENOTE ---
On walking rounds pt AAOx3 sling on R shoulder.NWB on r extremity , moving fingers , fingers are pink Ortho into see pt. Pt on 3l O2, Bipap nights .
--- NOTE | 2025-03-25 08:32 | W.PN.ORTHO ---
Today's Communication / Plan
-
75-year-old female postoperative day 3 right periprosthetic reverse total shoulder arthroplasty humeral diaphyseal ORIF with Dr. Sandhu
- Patient continues to do well, no concerns from orthopedic standpoint at this time
- Appreciate pulmonary consultation and hospitalist assistance. Will continue to follow recommendations with consideration of potential discharge if medically stable
- Nonweightbearing to right upper extremity. Sling when ambulatory; irritation from band across her neck which was loosened. May work on gentle range of motion elbow wrist and hand.
- Aspirin 81 mg twice daily for DVT prophylaxis
- parts sales manager for discharge planning with possible discharge today if medically stable and equipment available regarding respiratory support.
- Outpatient follow-up with orthopedic surgery approximately 2 weeks from date of surgery
Assessment
.
Distal Motor Intact: Yes
Dressing:
Clean, dry and intact.
Plan
.
Surgery / Date: 03/22/2025 R humerus ORIF w/ Dr. Sandhu
Activity:
Out of bed.
PT/OT
Subjective
.
.:
Patient resting comfortably.
Vital Signs and Labs
.
Vital Signs and Labs:
Lab Results
03/25/25 03:37
03/25/25 03:37
Temp Pulse Resp BP Pulse Ox
97.8 F 72 18 127/64 98
03/25/25 07:24 03/25/25 07:34 03/25/25 07:34 03/25/25 06:00 03/25/25 07:34
--- NOTE | 2025-03-25 08:38 | CM ---
CM reviewed medical records. When medically cleared, patient can transition to SNF at [facility].
[facility]
Report
[phone]
[2025-03-25] MEDS: NOVOLOG FLEXPEN-LOW RESISTANCE SC (09:11)
[2025-03-25] MEDS: PRANDIN 3 MG PO (09:12)
[2025-03-25] MEDS: PROTONIX 40 MG PO (09:13)
[2025-03-25] MEDS: WELLBUTRIN SR (12 hour sustained release) 150 MG PO (09:13)
[2025-03-25] MEDS: VIBRAMYCIN 100 MG PO (09:14)
[2025-03-25] MEDS: BUMEX 1 MG PO (09:14)
[2025-03-25] MEDS: COLACE PO ×2 (09:14→09:17)
[2025-03-25] MEDS: VITAMIN B-12 1000 MCG PO (09:14)
[2025-03-25] MEDS: MAG-TAB SR 84 MG PO (09:14)
[2025-03-25] MEDS: VITAMIN D3 (cholecalciferol) 50 MCG PO (09:14)
[2025-03-25] MEDS: KCL 40 MEQ PO (09:15)
[2025-03-25] MEDS: LOW STRENGTH ASPIRIN 81 MG PO (09:15)
--- NOTE | 2025-03-25 09:22 | W.PN.PUL3 ---
Today's Communication / Plan
-
Doing well today, tolerating BIPAP while here
CM able to place at facility that can accommodate AVAPS
OK for discharge planning from our perspective
OP Pulm FU with Dr Blakely
We will sign off at this time, please call with questions
Assessment
-
75-year-old woman with past medical history noted, incidentally her records reviewed-does not follow up locally with pulmonary or sleep. Underwent in November right reversal total shoulder arthroplasty. Subsequently sustained a fall with resultant
right tarry prostatic fracture. Admitted this time 03/22/2025 for ORIF. Surgery underwent and patient developed change in mental status with acute on chronic hypercapnic and hypoxemic respiratory failure. We were consulted for evaluation.
Acute on chronic hypoxemic and hypercapnic respiratory failure-likely triggered by anesthesia.
ABG 03/22/2025, 7.18/89
ABG 03/23/2025: 7.43/52/65
Chest x-ray 03-23-2025: Patchy bibasilar airspace disease-suspect hypoventilation. Atelectasis.
Status post: 03/22/2025 right periprosthetic fracture of reverse total shoulder arthroplasty humerus diaphyseal ORIF with Dr. Sandhu
Postoperative blood loss anemia status post 1 unit of packed red blood cells.
Condition presents for admission:
Obstructive sleep apnea/central apnea-on AVAP therapy-Unknown settings
Chronic kidney disease stage III
? COPD
Fluticasone/salmeterol
Distant history of smoking
Crohn's disease
Immunosuppression on Remicade infusions
Depression/anxiety
GERD
Peripheral arterial disease
Type 2 diabetes
Posterior arthritis
Status post Right reverse total shoulder arthroplasty.11/10/2024.
-
Plan:
Acute hypercapnic respiratory failure with chronic component s/p BIPAP
Suspect obesity hypoventilation syndrome/Obstructive sleep apnea.
COPD does not appear to be severe enough to cause hypercapnia but may be contributing.
Likely triggered by anesthesia/narcotics for pain etc.
Mental status back to baseline on my evaluation.
She is clinically improved--ABG has corrected.
Minimize narcotics
Minimize sedation
Likely patient has obstructive sleep apnea and obesity hypoventilation syndrome-has chronic compensatory metabolic alkalosis.
She notes she has central apneas requiring AVAPs
Again, patient does not follow up locally.
While in the hospital on PT use BiPAP therapy settings increased to 16/8 during naps and bedtime, she feels pressure too high
Will obtain records from pulmonary office for AVAPs settings
Patient can bring her own machine to the hospital ( Uses AVAP in outpx), and must continue to use it in rehabilitation after discharge-either BiPAP or her own machine.
No evidence for acute exacerbation of COPD.
Chest x-ray has bibasilar atelectasis.
There is no evidence for infection at this point. Doubt aspiration event.
Atelectasis likely due to hypoventilation from sedation in the setting of underlying sleep disorder.
Incentive spirometry encouraged
Increase activity as able
No indication for antibiotics or systemic corticosteroids.
Okay to restart Advair.
-
Wean down FiO2-currently on low rate supplemental oxygen per suspect hypoventilation
Increase activity
Minimize sedation
Incentive spirometry
-
Must continue to follow up with outpatient tile shader.
Will follow while in the hospital.
Follows up with Dr. Blakely-primary tile shader. Advised to make an appointment in the next 2 to 4 weeks after discharge.
-
interactive project manager following for evaluation of facility capabilities of handling her AVAPS device
Placement is obtained
D/c planning per team
Diagnostic Data
Reports and relevant images were personally reviewed.
Total time spent on this consultation/encounter __45__ minutes which includes review of history, physical exam, medications, laboratory data, personal review of imaging, extensive review of outpatient records, discussion with care team and
respiratory therapy.
Subjective Data
-
Date of Service:
Date of Service: March 25, 2025
Chief Complaint: Pulmonary Follow Up
Subjective:
Doing well, no new complaints
Ready to go
Objective Data
Data Reviewed
Vital Signs / I&O / Oxygen:
Vital Signs
Temp Pulse Resp BP Pulse Ox
97.8 F 72 18 115/63 98
03/25/25 07:24 03/25/25 07:34 03/25/25 07:34 03/25/25 09:14 03/25/25 07:34
Intake and Output
03/24/25 03/25/25 03/26/25
06:59 06:59 06:59
Intake Total 240 / 240 1071 / 1071
Output Total 3000 / 3000 1350 / 1350
Balance -2760 / -2760 -279 / -279
SaO2 98
Nasal Cannula flow liters per 2
minute
Physical Exam
General: Comfortable and Other (NAD)
HEENT: Normocephalic, Anicteric and Moist Mucous Membranes
Cardiovascular: S1-S2 and Regular Rhythm
Respiratory: Clear and Non-Labored Respirations
GI: Soft, Non Distended and Non Tender
Neurology: Awake, Alert and No Motor Deficits
Skin: Warm, Dry and Good Color
Labs/Micro/Reports
Lab Data
03/25/25 03:37
03/25/25 03:37
Microbiology
03/22/25 17:25 Nose MRSA Screen - Final
Staph aureus MRSA
[2025-03-25 11:52] LABS: Glucose - Point of Care 171 mg/dl (70-99)
[2025-03-25] MEDS: PRANDIN 4 MG PO (11:57)
[2025-03-25] MEDS: NOVOLOG FLEXPEN-LOW RESISTANCE 1 UNITS SC (11:58)
--- NOTE | 2025-03-25 12:41 | W.DCSUMMARY ---
Discharge Summary
Discharge Data
Date of Admission: 03/22/25
Date of Discharge: 03/25/25
Total time spent discharging patient (in min): 45
-
Pending Results: No
Hospital Course
75-year-old female who underwent reverse total shoulder arthroplasty with Dr. Sandhu in November 2024 was admitted at [facility] for hypercapnic hypoxemia. Upon discharge she had a fall and subsequent known humerus diaphyseal periprosthetic
reverse total shoulder arthroplasty fracture. She was splinted and was seen on outpatient basis by Dr. Sandhu and recommended for operative intervention. The patient presented to [facility] and underwent open reduction internal fixation
of her periprosthetic fracture of her right humerus on 22 March 2025. The patient recovered in the PACU and was noted to have acute on chronic hypercapnic hypoxic respiratory failure and was transferred to the intensive medicine unit. The patient
improved with BiPAP and was seen by pulmonology and hospitalist while admitted. While admitted, patient did well on BiPAP but was recommended to return to her AVAPS upon discharge or BiPAP with home settings. She was recommended for outpatient
follow-up with her floor finisher helper. Patient was placed temporarily on a sliding scale for insulin was recommended to return to her home medication regimen without any changes. The postoperative course remained uncomplicated. At the time of
discharge, the patient was noted to be tolerating a regular diet, ambulating with adherence to weightbearing and activity restrictions and had pain controlled on oral medications. Prior to discharge, the patient was provided with appropriate
discharge/follow-up/return instructions, and discharge medications. Patient was approved for transition to long-term facility at [facility]
Discharge Plan
-
Patient Disposition: Fdc/SNF
Discharge Diagnosis/Procedures: Right shoulder periprosthetic humerus fracture with ORIF with Dr. Sandhu
Condition: Fair
Diet: No restrictions
Activity: Other activity
Additional Activity: Nonweightbearing to right upper extremity. May perform range of motion of elbow wrist and hand. Sling when ambulatory removing. May periodically take breaks from sling for soft tissue rest of her neck
Driving Restrictions: No driving
Bathing Restrictions: OK to Shower
Wound Care: Maintain dressing to right upper extremity until first postoperative follow-up
Referrals:
Wilber Sandhu MD [Active, Orthopedics]
Referral Note: Follow-up 2 weeks from date of surgery for x-rays and clinical exam with suture/staple removal
UNKNOWN - PT NOT,INTERVIEWE [Family Provider]
Prescriptions:
New
tramadol 50 mg Tablet
50 mg PO Q6HPRN PRN (Reason: MODERATE PAIN) Qty: 20 0RF
docusate sodium 100 mg Capsule
100 mg PO BID Qty: 14 0RF
fluticasone propion-salmeterol 115-21 mcg/actuation Hfa Aerosol Inhaler
2 puff inhalation R BID Qty: 12 0RF
cyanocobalamin (vitamin B-12) [Vitamin B-12] 1,000 mcg Tablet
1,000 mcg PO DAILY Qty: 30 0RF
Continued
bupropion HCl [Wellbutrin SR] 150 mg Tablet Sustained-Release 12 Hr
150 mg PO DAILY
repaglinide 2 mg Tablet
3 mg PO DAILY
repaglinide 2 mg Tablet
4 mg PO BID@1200,1800
pantoprazole [Protonix] 40 mg Tablet,Delayed Release (Dr/Ec)
40 mg PO DAILY
Novolin N NPH U-100 Insulin 100 unit/mL Suspension
15 unit SC DAILY
cholecalciferol (vitamin D3) [Vitamin D3] 50 mcg (2,000 unit) Capsule
50 mcg PO DAILY
fluticasone propion-salmeterol 250-50 mcg/dose Blister With Device
1 inh INHALATION Q12H
gabapentin 600 mg Tablet
600 mg PO HS
acetaminophen 500 mg Tablet
1,000 mg PO Q6H PRN (Reason: pain)
ropinirole 0.5 mg Tablet
0.5 mg PO HS
bumetanide 1 mg Tablet
1 mg PO BID
fluticasone propionate [Flonase Allergy Relief] 50 mcg/actuation [place],Suspension
2 spray INTRANASAL DAILY PRN (Reason: Rhinitis, Congestion)
cyclobenzaprine 5 mg Tablet
5 mg PO Q8HPRN PRN (Reason: Spasms)
potassium chloride 20 mEq Tablet Extended Release
40 meq PO DAILY
magnesium oxide 200 mg magnesium Tablet
400 mg PO DAILY
Trulicity 4.5 mg/0.5 mL Pen Injector
4.5 mg SC QWEEK
cilostazol 100 mg tablet
100 mg PO DAILY
ropinirole 0.5 mg Tablet
0.5 mg PO PRN PRN (Reason: RLS if first dose ineffective)
lidocaine HCl 4 % Adhesive Patch,Medicated
1 patch TOPICAL Q12H
infliximab [Remicade] 100 mg Recon Soln
1,000 mg IV Q6W
Changed
aspirin 81 mg Tablet
81 mg PO BID 30 Days Qty: 60 0RF
Discontinued
acetaminophen-codeine 300-30 mg Tablet
1 tab PO Q4H MDD 3 gm PRN (Reason: Severe Pain)
Discharge Orders:
Discharge Patient (As Directed); Ordered 03/25/25
Ordered By: Oral Jones
Discharge Date and Time
Print Language: GUYANESE
--- NOTE | 2025-03-25 12:58 | W.PN.HOSP.TC ---
Today's Communication/Plan
-
Monitor vital signs see plan
No objection for discharge today
Continue with Advair
Avaps at
Assessment / Plan
Assessment / Plan
General: Well Developed, Well Nourished and No Apparent Distress
HEENT: Normocephalic, Moist Mucous Membranes and Atraumatic
Respiratory: Clear
Cardiac: S1/S2 and Regular Rhythm; Negative Murmur or Rub
GI: Soft, Non Tender, Non Distended and Normal Bowel Sounds
Musculoskeletal: No Edema
Neuro: Nonfocal/Grossly Intact
Right periprosthetic humerus fracture status post ORIF
# Right rotator cuff arthropathy/arthritis status post right reverse total shoulder arthroplasty in November 2024
-400 cc blood loss, received 1200 cc IV fluids intraoperatively
-Uribe catheter placed; remove per primary team
- Received 1 unit of blood in operating room
# Altered mental status/hypoxemia after anesthesia concerning for hypercarbia in setting of COPD and morbid obesity
Toxic metabolic encephalopathy on admission likely secondary to acute hypercarbic hypoxic respiratory failure
Continue to monitor
improved
Acute hypercarbic hypoxic respiratory failure
ABG noted on 03/22 with severe respiratory acidosis secondary to suspected acute on chronic hypercarbia
Repeat ABG 03/23 improving with pH 7.4. Suspect some hypercarbia is chronic
She uses AVAPS at home. Currently was placed on BiPAP overnight. This morning on nasal cannula. Pulmonary following. optical store manager for disposition. Appears facility will set patient with AVAPS
Chest x-ray 03/23 with atelectasis. Continue with I-S
Restarted Advair. Patient is not compliant at home and only takes his as needed
Toxic metabolic encephalopathy on admission likely secondary to acute hypercarbic hypoxic respiratory failure
Continue to monitor
improved
Worsening anemia
Likely acute on chronic
Low vitamin B12, replete
Peripheral arterial disease
- Continue cilostazol
Childhood heart murmur
Osteoarthritis
- Continue cyclobenzaprine, gabapentin
History of PACs
Type 2 diabetes
- On Trulicity
- Restart repaglinide
-Hold Novolin
- Insulin sliding scale for now
A1c 6.8
Anxiety/depression
- Continue bupropion
Crohn's disease
- On Remicade
Restless leg syndrome
- Continue ropinirole
GERD
COPD
Obstructive sleep apnea
-On avap at home
CKD 3
- Renal function at base
History of C. difficile colitis 2017
Obesity
Former tobacco use
Full code
DVT prophylaxis�aspirin per ortho
Anticipated Discharge: Today
Subjective/Interval History
-
Date of Service: March 25, 2025
Denies pain
Objective Data
-
Labs:
Laboratory Results
03/25/25
03:37
WBC 9.0
Hgb 9.1 L
Hct 29.6 L
Plt Count 395
Sodium 135
Potassium 3.9
Chloride 93 L
Carbon Dioxide 38 H
BUN 38 H
Creatinine 1.2 H
Glucose 122 H
Calcium 8.9
Total Bilirubin 0.8
AST 17
ALT 10
Alkaline Phosphatase 80
Vital Signs:
Vital Signs
Temp Pulse Resp BP Pulse Ox
97.7 F 68 16 115/63 94
03/25/25 11:23 03/25/25 08:00 03/25/25 08:00 03/25/25 09:14 03/25/25 09:49
I&O
03/24/25 03/25/25 03/26/25
06:59 06:59 06:59
Intake Total 240 / 240 1071 / 1071
Output Total 3000 / 3000 1350 / 1350
Balance -2760 / -2760 -279 / -279
--- NOTE | 2025-03-25 14:03 | PTCARENOTE ---
REport to [facility]
[2025-03-25] MEDS: TYLENOL 1000 MG PO (14:34)
[2025-03-25] MEDS: ZOFRAN 4 MG IV (14:35)
--- NOTE | 2025-03-25 16:23 | PTCARENOTE ---
Pt left via EMS with belongings
[2025-03-26 07:17] LABS: Transferrin 235 mg/dL (200-360)
== END 2025-03-25 16:41 | DRG 492 ==
LOC: IMU 15:00
PROVIDERS: Internal Medicine; Student in an Organized Health Care Education/Training Program; ADMITTING PHYSICIAN Orthopaedic Surgery Hand Surgery; OTHER PHYSICIAN Hospitalist; OTHER PHYSICIAN Internal Medicine Critical Care Medicine
PROC: 5A09357 Assistance with Respiratory Ventilation, Less than 24 Consecutive Hours, Continuous Positive Airway Pressure (ICD-10-PCS; 2025-03-22)
PROC: 0PSF04Z Reposition Right Humeral Shaft with Internal Fixation Device, Open Approach (ICD-10-PCS; 2025-03-23)
PROC: 30233N1 Transfusion of Nonautologous Red Blood Cells into Peripheral Vein, Percutaneous Approach (ICD-10-PCS; 2025-03-23)
DX: S42.3 Fracture of shaft of humerus (principal); G92.8 Other toxic encephalopathy; J96.21 Acute and chronic respiratory failure with hypoxia; J96.22 Acute and chronic respiratory failure with hypercapnia; M97.31XA Periprosthetic fracture around internal prosthetic right shoulder joint, initial encounter; E66.2 Morbid (severe) obesity with alveolar hypoventilation; J98.11 Atelectasis; K50.90 Crohn's disease, unspecified, without complications; E87.3 Alkalosis; Z68.41 Body mass index [BMI] 40.0-44.9, adult; W01.0XXA Fall on same level from slipping, tripping and stumbling without subsequent striking against object, initial encounter; N18.30 Chronic kidney disease, stage 3 unspecified; J44.9 Chronic obstructive pulmonary disease, unspecified; K21.9 Gastro-esophageal reflux disease without esophagitis; G25.81 Restless legs syndrome; F41.9 Anxiety disorder, unspecified; F32.A Depression, unspecified; E11.22 Type 2 diabetes mellitus with diabetic chronic kidney disease; E11.51 Type 2 diabetes mellitus with diabetic peripheral angiopathy without gangrene; M19.011 Primary osteoarthritis, right shoulder; D63.1 Anemia in chronic kidney disease; Z79.02 Long term (current) use of antithrombotics/antiplatelets; Z79.82 Long term (current) use of aspirin; Z79.4 Long term (current) use of insulin; Z79.899 Other long term (current) drug therapy; Z86.19 Personal history of other infectious and parasitic diseases; Z87.891 Personal history of nicotine dependence
CPT/HCPCS: 36600; 71046; 73020; 73060; 76000; 80048; 80053; 82607; 82728; 82746; 82805; 82962; 83036; 83540; 83550; 84466; 85014; 85018; 85025; 85027; 86850; 86900; 86901; 86920; 87070; 87147; 93005; 94640; 94660; 97163; 97167; C1713; P9016